=== PATIENT | male | born 1980 | race Caucasian/White ===

== ENCOUNTER 2016-05-13 19:43 | Emergency (ER) | payer SELFPAY ==
[2016-05-13 19:43] VITALS: BMI 29.2
[2016-05-13 19:49] VITALS: BP 138/81; PULSE 86; RESP 20; TEMP 99.2; O2SAT 96
--- NOTE | 2016-05-13 21:40 | C.PDOC ---
History Of Present Illness 35 yr old male presents to the ER for evaluation of a sore throat and difficulty swallowing gradually developing over the past week. Patient denies fever, chills, headache, dizziness, drooling, trismus, facial swelling, neck pain, cough, chest pain, SOB, abd. pain, nausea, vomiting, or any other active complaints. Ambulate to Ed for evaluation, not in any apparent distress. Time Seen by Provider: 05/13/16 20:19 Chief Complaint (Nursing): ENT Problem History Per: Patient History/Exam Limitations: None Onset/Duration Of Symptoms: Gradual (few days) Current Symptoms Are (Timing): Still Present Past Medical History Reviewed: Historical Data, Nursing Documentation, Vital Signs Vital Signs: Last Vital Signs Temp 99.2 F 05/13/16 19:46 Pulse 86 05/13/16 19:46 Resp 20 05/13/16 19:46 BP 138/81 05/13/16 19:46 Pulse Ox 96 05/13/16 21:43 - Medical History PMH: Bronchitis, Seizures ("febrile" as per gf) Surgical History: No Surg Hx Family History: States: No Known Family Hx - Social History Hx Tobacco Use: No Hx Alcohol Use: No Hx Substance Use: No - Immunization History Hx Tetanus Toxoid Vaccination: No Hx Influenza Vaccination: No Hx Pneumococcal Vaccination: No Review Of Systems Except As Marked, All Systems Reviewed And Found Negative. Constitutional: Negative for: Fever, Chills ENT: Positive for: Throat Pain (Sore throat ), Other (difficulty swallowing) Cardiovascular: Negative for: Chest Pain Respiratory: Negative for: Cough, Shortness of Breath Gastrointestinal: Negative for: Nausea, Vomiting Neurological: Negative for: Weakness, Numbness Physical Exam - Physical Exam Appears: Well, Non-toxic, No Acute Distress Skin: Warm, Dry, No Rash Head: Atraumatic, Normacephalic Eye(s): bilateral: Normal Inspection Ear(s): Bilateral: Normal Nose: Normal, No Discharge Oral Mucosa: Moist, No Drooling, No Trismus Tongue: Normal Appearing Lips: Normal Appearing Throat: Erythema (Bilateral pharngeal edema, erythema), Exudate (Right tonsil enlargement with exudate), No Drooling, Other (uvula midline, no edema.) Neck: Normal, Normal ROM, Supple Chest: Symmetrical, No Tenderness Cardiovascular: Rhythm Regular, No Murmur Respiratory: Normal Breath Sounds, No Rales, No Rhonchi, No Stridor, No Wheezing Gastrointestinal/Abdominal: Normal Exam, Soft, No Tenderness, No Guarding, No Rebound Back: Normal Inspection Extremity: Normal ROM, No Tenderness, No Pedal Edema Neurological/Psych: Oriented x3, Normal Speech, Normal Motor ED Course And Treatment O2 Sat by Pulse Oximetry: 96 Pulse Ox Interpretation: Normal Progress Note: On re-eavluation, pt is afebrile, hemodynamicaly stable. Non- toxic. Tolerate Po well in Ed. PulsEOx 96% RA. ENT: exam c/w acute tonsillitis. uvula midline, no edema. Neck: (-) meningeal sign. Lungs: CTA B/L , BS equal B/L. Abd: benign. Neurologicaly intact. RST (-). Pt reports allergy to PCN only. Pt advised on course of ds. ref. to f/u with PMD and ENT in 2 days for re-evaluation. Rteurn to ED if any worsening or new changes. Medical Decision Making Medical Decision Making: PLAN: * Rapid Strep * Clindamycin PO * Tramadol PO * Prednisone PO Disposition Counseled Patient/Family Regarding: Studies Performed, Diagnosis, Need For Followup, Rx Given - Disposition Referrals: Sabas Chiang MD [Staff Provider] - Disposition: HOME/ ROUTINE Disposition Time: 21:10 Condition: STABLE Additional Instructions: ENCOURAGE FLUIDS WARM SALTY WATER THROAT GARGLES 2-3 TIMES DAILY TAKE MEDICATION PRESCRIBED FOLLOW UP WITH ENT IN 1-2 DAYS FOR RE-EVALUATION. RETURN TO ED IF ANY WORSENING OR NEW CHANGES. 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 - Scribe Statement The provider has reviewed the documentation as recorded by the Davidibvita Yousif All medical record entries made by the Scribe were at my direction and personally dictated by me. I have reviewed the chart and agree that the record accurately reflects my personal performance of the history, physical exam, medical decision making, and the department course for this patient. I have also personally directed, reviewed, and agree with the discharge instructions and disposition.
== END 2016-05-13 22:12 | disposition home or self-care (01) ==
LOC: C.ER 19:43
DX: J03.90 Acute tonsillitis, unspecified (principal)